=== PATIENT | male | born 1965 | race Caucasian/White ===

== ENCOUNTER → 2016-11-16 | Outpatient (CLI) | payer BC, OTHER | END | disposition home or self-care (01) | LOC: C.LAB 17:12 | PROVIDERS: ATTEND Urology | DX: R97.20 Elevated prostate specific antigen [PSA] (principal) ==

== ENCOUNTER → 2017-01-25 | Outpatient (CLI) | payer BC, OTHER | END | disposition home or self-care (01) | LOC: C.PATHSPEC 17:30 | PROVIDERS: ATTEND Urology | DX: R97.20 Elevated prostate specific antigen [PSA] (principal); C61 Malignant neoplasm of prostate ==

== ENCOUNTER → 2017-11-07 | Outpatient (CLI) | payer BC, OTHER ==
[~2017-11-07] MED LIST: GADAVIST IV PRN; PSEUCAP67 PO
--- NOTE | 2017-11-07 15:26 | DIAGNOSTIC IMAGING REPORT ---
PROSTATE MRI COMBO CLINICAL HISTORY: 52 years-old Male presenting with ELEVATED PSA 6.98 09/01/17. PSA 6.98 ng/mL. TECHNIQUE: Multisequence, multiplanar MR imaging of the prostate was performed before and after the administration of intravenous contrast. Additional postprocessing was performed on a separate [employer] workstation by the radiologist for 3-D volumetric segmentation of the prostate and contouring of region(s) of interest (DEB) for targeting. IV contrast: 9.5 cc Gadavist COMPARISON: None. FINDINGS: Prostate: The prostate measures 4.8 x 4.3 x 5.0 cm (DynaCAD prostate boundary segmentation volume 52 mL). Mild to moderate changes of benign prostatic hyperplasia. Precontrast T1 weighted imaging demonstrates no evidence of intrinsic T1 hyperintensity to suggest hemorrhage. No suspicious lesion is apparent in the transition or peripheral zones. Triangular shaped 7 mm T2 hyperintense focus within the right peripheral zone. This does not demonstrate restricted diffusion. No associated enhancement. Therefore, this favors scarring. Seminal vesicles normal. Bladder: Normal. Bowel: Visualized portion of the rectum normal. Peritoneum: No free fluid in the pelvis. Lymph nodes: No lymphadenopathy in the visualized portion of the pelvis. Vasculature: Iliac vessels patent. Abdominal wall: Normal. Osseous structures: Normal bone marrow signal intensity. IMPRESSION: 1. No suspicious lesions within the prostate gland. 2. Benign prostatic hyperplasia. Electronically signed by: Adryan Quiroga M.D. 11/08/2017 1:57 PM Dictated Date/Time: 11/07/2017 3:16 PM
== END | disposition home or self-care (01) ==
LOC: C.MRIBC 13:36
PROVIDERS: ATTEND Urology
DX: N40.0 Benign prostatic hyperplasia without lower urinary tract symptoms (principal)